=== PATIENT | male | born 1985 | race Caucasian/White ===

== ENCOUNTER 2016-10-05 00:03 | Emergency (ER) | payer OTHER ==
[2016-10-05 00:05] VITALS: BMI 56.1
[2016-10-05 00:08] VITALS: TEMP 98.2
[2016-10-05] MEDS ORDERED: DiphenhydrAMINE 50 mg/ml Inj IVP STA (00:40)
--- NOTE | 2016-10-05 01:00 | ED PDOC ---
Arrival/HPI - General Historian: Patient - General Chief Complaint: Allergic Reaction Time Seen by Provider: 10/05/16 00:11 - History of Present Illness Narrative History of Present Illness (Text): 10/05/16 00:54 Mr. Reyes is a 30 year old male with past medical history significant for hypertension who complains of breaking out with hives over the past 4-6 hours and shortness of breath for the past 30 min to an hour. He reports being at a barbeque earlier this afternoon and began to break out in hives along his left arm. The hives then spread from his left arm to the rest of his body covering his abdomen, lower extremities bilaterally, and right arm. His shortness of breath began about an hour prior to arrival as he noticed having an itchy throat , with minimal difficulty swallowing his saliva. He denies taking his anti- hypertensive medication today as well as any other medications to aid his symptoms. He denies any exposure to new foods, changes in his soaps, detergents. He did indicate that he received a tetanus booster on Wednesday in an effort to help with his razor irritation on his face. He denies any wheezing, fever, diarrhea. (HARSH IBANEZ) Past Medical History - Provider Review Nursing Documentation Reviewed: Yes - Past History Past History: No Previous - Cardiac Hx Hypertension: Yes - Psychiatric Hx Substance Use: No - Surgical History Hx Orthopedic Surgery: Yes (right hand and wrist) - Anesthesia Hx Anesthesia: No Family/Social History - Physician Review Nursing Documentation Reviewed: Yes Family/Social History: No Known Family HX Smoking Status: Never Smoked Hx Alcohol Use: Yes Hx Substance Use: No Allergies/Home Meds Allergies/Adverse Reactions: Allergies No Known Allergies Allergy (Verified 10/05/16 00:05) Home Medications: Home Meds Medication Instructions Recorded Confirmed Lisinopril/Hydrochlorothiazide 1 each PO DAILY 10/05/16 10/05/16 [Lisinopril-Hctz 10-12.5 mg Tab] Review of Systems - Review of Systems Constitutional: absent: Fatigue, Weight Change, Fevers Eyes: absent: Vision Changes ENT: absent: Hearing Changes Respiratory: SOB. absent: Cough, Wheezing Cardiovascular: absent: Chest Pain, Palpitations Gastrointestinal: absent: Abdominal Pain, Stool Changes, Diarrhea, Nausea, Vomiting Skin: Rash, Pruritis Neurological: absent: Headache, Dizziness Endocrine: absent: Diaphoresis Physical Exam Vital Signs Reviewed: Yes Temperature: Afebrile Blood Pressure: Hypertensive Pulse: Regular Respiratory Rate: Normal Appearance: Positive for: Uncomfortable Mental Status: Positive for: Alert and Oriented X 3 - Systems Exam Head: Present: Atraumatic, Normocephalic Pupils: Present: PERRL Extroacular Muscles: Present: EOMI Conjunctiva: Present: Normal Mouth: Present: Moist Mucous Membranes Respiratory/Chest: Present: Clear to Auscultation, Good Air Exchange. No: Respiratory Distress, Accessory Muscle Use Cardiovascular: Present: Regular Rate and Rhythm, Normal S1, S2 Abdomen: Present: Normal Bowel Sounds. No: Tenderness, Distention Upper Extremity: Present: NORMAL PULSES, Other (hives) Lower Extremity: Present: NORMAL PULSES Neurological: Present: GCS=15, CN II-XII Intact, Speech Normal Skin: Present: Erythematous, Other (hives present on upper extremity and lower extremity b/l and abdomen ) Psychiatric: Present: Alert, Oriented x 3 Vital Signs Temp Pulse Resp BP Pulse Ox 10/05/16 00:07 98.2 F 86 18 171/119 H 97 Medical Decision Making ED Course and Treatment: Impression: Pt seen and evaluated with medical appointment scheduler. Pt, whose past medical history includes hypertension, presented for hives for 4-6 hours prior to arrival with shortness of breath and throat itchiness. Aware and agree with HPI, clinical findings, plan, and management. Plan: -- Benadryl -- Pepcid -- Protonix -- Solu-medrol -- Reassess and disposition (Brian Galvez) 10/05/16 01:03 Impression: Mr. Reyes is a 30 year old male complaining of breaking out in hives and difficulty breathing. DDX: - Acute urticaria Plan: -- Benadryl, Solumedrol, Pepcid Progress Notes: (HARSH IBANEZ) - Medication Orders Current Medication Orders: Discontinued Medications Diphenhydramine HCl (Benadryl) 50 mg PO STAT STA Stop: 10/05/16 00:37 Last Admin: 10/05/16 00:51 Dose: Diphenhydramine HCl (Benadryl) 25 mg IVP STAT STA Stop: 10/05/16 00:41 Last Admin: 10/05/16 01:05 Dose: 25 mg Famotidine (Pepcid) 20 mg IVP STAT STA Stop: 10/05/16 00:52 Last Admin: 10/05/16 01:05 Dose: 20 mg Methylprednisolone (Solu-Medrol) 125 mg IVP STAT STA Stop: 10/05/16 00:41 Last Admin: 10/05/16 01:05 Dose: 125 mg Pantoprazole Sodium (Protonix Inj) 40 mg IVP STAT STA Stop: 10/05/16 00:41 Last Admin: 10/05/16 00:51 Dose: - PA / [employer] / Resident Statement / has reviewed & agrees with the documentation as recorded. / has examined the patient and agrees with the treatment plan. Disposition/Present on Arrival - Present on Arrival Any Indicators Present on Arrival: No History of DVT/PE: No History of Uncontrolled Diabetes: No Urinary Catheter: No History of Decub. Ulcer: No History Surgical Site Infection Following: None - Disposition Have Diagnosis and Disposition been Completed?: Yes Disposition Time: 03:00 - Disposition Diagnosis: Urticaria Condition: IMPROVED
[2016-10-05 03:08] VITALS: BP 139/74; PULSE 75; RESP 16; O2SAT 96
== END 2016-10-05 03:09 | disposition home or self-care (01) ==
LOC: ED 00:03
DX: L50.9 Urticaria, unspecified (principal)
CPT/HCPCS: 96374; 96375; 99283; J1200; J2930

== ENCOUNTER 2018-06-23 11:34 | Emergency (ER) | payer MEDICAID, OTHER ==
[2018-06-23 11:47] VITALS: BMI 43.9
[2018-06-23 11:48] VITALS: TEMP 98.3
[2018-06-23 12:10] VITALS: O2SAT 96
--- NOTE | 2018-06-23 12:23 | ED PDOC ---
Arrival/HPI - General Chief Complaint: High Blood Pressure Historian: Patient - History of Present Illness Narrative History of Present Illness (Text): 06/23/18 12:12 32 y/o male, pmh including htn and headache, nkda, c/o woke up with posterior headache this morning from sleeping. Aching pain, throbbing sensation, doesn't feel well, checked his BP and noted to be "high", concern and came to the ER for evaluation, BP in the ER is 142/94, stated that he doesn't feel dizziness but has throbbing sensation headache, no numbness or tingling, no blurry vision or change in vision, no night sweat, no rash, no diarrhea, no other medical or psychological complaints. Past Medical History - Provider Review Nursing Documentation Reviewed: Yes - Past History Past History: No Previous - Cardiac Hx Hypertension: Yes - Gastrointestinal Hx Bowel Surgery: Yes - Genitourinary/Gynecological Hx Genitourinary Disorders: Yes - Psychiatric Hx Substance Use: No - Surgical History Hx Orthopedic Surgery: Yes (right hand and wrist) - Anesthesia Hx Anesthesia: No Family/Social History - Physician Review Nursing Documentation Reviewed: Yes Family/Social History: Unknown Family HX Smoking Status: Never Smoked Hx Alcohol Use: Yes Hx Substance Use: No Allergies/Home Meds Allergies/Adverse Reactions: Allergies No Known Allergies Allergy (Verified 10/05/16 00:05) Home Medications: Home Meds Medication Instructions Recorded Confirmed Lisinopril/Hydrochlorothiazide 1 each PO DAILY 10/05/16 10/05/16 [Lisinopril-Hctz 10-12.5 mg Tab] Review of Systems - Review of Systems Constitutional: absent: Fatigue, Fevers Eyes: absent: Vision Changes ENT: absent: Hearing Changes Respiratory: absent: SOB, Cough Cardiovascular: absent: Chest Pain Gastrointestinal: absent: Abdominal Pain, Diarrhea, Nausea, Vomiting Musculoskeletal: absent: Arthralgias, Back Pain Skin: absent: Rash, Pruritis Neurological: Headache. absent: Dizziness Psychiatric: absent: Anxiety, Depression, Suicidal Ideation Physical Exam Vital Signs Reviewed: Yes Vital Signs Temp Pulse Resp BP Pulse Ox 06/23/18 12:09 54 L 18 142/94 H 96 06/23/18 11:47 98.3 F 76 16 160/104 H 97 Temperature: Afebrile Blood Pressure: Hypertensive Pulse: Regular Respiratory Rate: Normal Appearance: Positive for: Well-Appearing, Non-Toxic, Comfortable Pain Distress: Moderate Mental Status: Positive for: Alert and Oriented X 3 - Systems Exam Head: Present: Atraumatic, Normocephalic, Other (no temporal artery tenderness or jaw claudication). No: Tenderness, Contusion, Swelling, Ecchymosis, Abrasion, Laceration Pupils: Present: PERRL Extroacular Muscles: Present: EOMI Conjunctiva: Present: Normal Ears: Present: NORMAL TM, Normal Canal. No: Erythema Mouth: Present: Moist Mucous Membranes Pharnyx: No: ERYTHEMA, EXUDATE, TONSILS ENLARGED Nose (External): Present: Atraumatic. No: Abrasion, Contusion, Laceration Nose (Internal): Present: Normal Inspection, No Active Bleeding. No: Rhinorrhea, Septal Hematoma, Epistaxis Neck: Present: Normal Range of Motion, Trachea Midline. No: Meningeal Signs, M IDLINE TENDERNESS, Paraspinal Tenderness, Lymphadenopathy Respiratory/Chest: Present: Clear to Auscultation, Good Air Exchange. No: Respiratory Distress, Accessory Muscle Use, Wheezes, Decreased Breath Sounds, Rales, Retracting, Rhonchi, Tachypneic, Tender to Palpation Cardiovascular: Present: Regular Rate and Rhythm, Normal S1, S2. No: Murmurs Abdomen: No: Tenderness, Distention, Peritoneal Signs, Rebound, Guarding Back: Present: Normal Inspection Upper Extremity: Present: Normal Inspection. No: Cyanosis, Edema Lower Extremity: Present: Normal Inspection. No: Edema Neurological: Present: GCS=15, CN II-XII Intact, Speech Normal, Motor Func Grossly Intact, Normal Cerebellar Funct, Gait Normal, Memory Normal, Other (normal finger to nose test, normal heel to cervantes test. ) Skin: Present: Warm, Dry, Normal Color. No: Rashes Psychiatric: Present: Alert, Oriented x 3, Normal Insight, Normal Concentration Medical Decision Making ED Course and Treatment: 06/23/18 12:29 -Labs -CT head -IV reglan/benadryl/tylenol -Observe and reassess 06/23/18 14:32 -EKG: SB @ 48 BPM, no ST elevation or depression, no T wave inversion -CT head Normal CT of the Head. No intracranial mass, hemorrhage or evidence of acute infarct. -Labs are non-significant -Pt. feels completely relief after the medications given in the ER. -Pt. stated that he is currently on lisinopril 40mg po qd by the pmd but out of prescription, request for refill, normal bun/creatine -Discharge home with fioricet, lisinopril 40mg po prescription refill, low salt diet, follow up with your own pmd within 2 days, return to the ER for any new or worsening signs or symptoms. - RAD Interpretation Radiology Orders: Date of service: 06/23/2018 PROCEDURE: CT HEAD WITHOUT CONTRAST. HISTORY: headache COMPARISON: Not available TECHNIQUE: Axial computed tomography images were obtained through the head/brain without intravenous contrast. Radiation dose: Total exam DLP = 851.37 mGy-cm. This CT exam was performed using one or more of the following dose reduction techniques: Automated exposure control, adjustment of the mA and/or kV according to patient size, and/or use of iterative reconstruction technique. FINDINGS: HEMORRHAGE: No intracranial hemorrhage. BRAIN: No mass effect or edema. No atrophy or chronic microvascular ischemic changes. VENTRICLES: Unremarkable. No hydrocephalus. CALVARIUM: Unremarkable. PARANASAL SINUSES: Unremarkable as visualized. No significant inflammatory changes. MASTOID AIR CELLS: Unremarkable as visualized. No inflammatory changes. OTHER FINDINGS: None. IMPRESSION: Normal CT of the Head. No intracranial mass, hemorrhage or evidence of acute infarct. Blood Bank Attendant: Radiologist Disposition/Present on Arrival - Present on Arrival Any Indicators Present on Arrival: No History of DVT/PE: No History of Uncontrolled Diabetes: No Urinary Catheter: No History of Decub. Ulcer: No History Surgical Site Infection Following: None - Disposition Have Diagnosis and Disposition been Completed?: Yes Diagnosis: Headache, HTN (hypertension), Medication refill Disposition: HOME/ ROUTINE Disposition Time: 14:36 Patient Plan: Discharge Condition: IMPROVED Additional Instructions: -Discharge home with fioricet, lisinopril 40mg po prescription refill, low salt diet, follow up with your own pmd within 2 days, return to the ER for any new or worsening signs or symptoms. Prescriptions: Acetaminophen/Butalbital/Caf [Fioricet] 1 tab PO QID PRN #28 tab PRN Reason: Other Lisinopril [Zestril] 40 mg PO DAILY #21 tab Referrals: Martita Cadena DO [Primary Care Provider] - Follow up with primary Romeo Calvin MD [Staff Provider] - Follow up with primary Forms: [employer] ([place]), WORK NOTE
[2018-06-23] MEDS ORDERED: DiphenhydrAMINE 50 mg/ml Inj IVP STA (12:24)
[2018-06-23] MEDS ORDERED: Sodium Chloride 0.9% 500 ML IV SCH (12:30)
--- NOTE | 2018-06-23 13:01 | CT ---
Date of service: 06/23/2018 PROCEDURE: CT HEAD WITHOUT CONTRAST. HISTORY: headache COMPARISON: Not available TECHNIQUE: Axial computed tomography images were obtained through the head/brain without intravenous contrast. Radiation dose: Total exam DLP = 851.37 mGy-cm. This CT exam was performed using one or more of the following dose reduction techniques: Automated exposure control, adjustment of the mA and/or kV according to patient size, and/or use of iterative reconstruction technique. FINDINGS: HEMORRHAGE: No intracranial hemorrhage. BRAIN: No mass effect or edema. No atrophy or chronic microvascular ischemic changes. VENTRICLES: Unremarkable. No hydrocephalus. CALVARIUM: Unremarkable. PARANASAL SINUSES: Unremarkable as visualized. No significant inflammatory changes. MASTOID AIR CELLS: Unremarkable as visualized. No inflammatory changes. OTHER FINDINGS: None. IMPRESSION: Normal CT of the Head. No intracranial mass, hemorrhage or evidence of acute infarct.
[2018-06-23 13:27] LABS: BASO # 0.02 K/mm3 (0.0-2.0); BASO % 0.2 % (0.0-3.0); EOS # 0.1 (0.0-0.7); EOS % 1.4 % (1.5-5.0); HEMOGLOBIN 15.9 g/dL (14.0-18.0); LYMPH # 2.9 (1.2-3.4); LYMPH % 32.2 % (22.0-35.0); MEAN CELL VOLUME 82.7 fl (80.0-105.0); MEAN CORPUSCULAR HEMOGLOBIN 27.5 pg (25.0-35.0); MEAN CORPUSCULAR HGB CONC 33.3 g/dl (31.0-37.0); MEAN PLATELET VOLUME 11.2 fl (7.0-11.0); MONO # 0.6 (0.1-0.6); MONO % 6.2 % (1.0-6.0); RBC 5.78 10^6/uL (3.5-6.1); RED CELL DISTRIBUTION WIDTH 13.2 % (11.5-14.5); WHITE BLOOD COUNT 8.8 10^3/uL (4.5-11.0)
[2018-06-23 14:15] LABS: ALB/GLOB RATIO 1.1 (1.1-1.8); ALBUMIN 3.6 g/dL (3.0-4.8); ALT/SGPT 24 U/L (7-56); AST/SGOT 16 U/L (17-59); BLOOD UREA NITROGEN 13 mg/dL (7-21); CALCIUM 9.3 mg/dL (8.4-10.5); GFR NON-AFRICAN AMERICAN > 60
[2018-06-23 14:59] VITALS: BP 132/89; PULSE 58; RESP 18
--- NOTE | 2018-06-23 16:05 | CARD ---
APPROVED REPORT Date of service: 06/23/2018 EKG Measurement Heart [id number] MS 160P1 [id number] <Conclusion> Marked sinus bradycardia Abnormal ECG
== END 2018-06-23 14:56 | disposition home or self-care (01) ==
LOC: ED 11:34
DX: I10 Essential (primary) hypertension (principal); R51 Headache; Z76.0 Encounter for issue of repeat prescription
CPT/HCPCS: 70450; 80053; 83735; 85025; 93005; 96374; 96375; 99283; J1200; J2765; J7040